=== PATIENT | male | born 1955 | race African-American/Black ===

== ENCOUNTER 2024-09-11 00:53 | Emergency (ER) | payer MEDICARE ==
[~2024-09-11] VITALS: Ht 185.4 cm; Wt 91.0 kg
[2024-09-11 01:20] VITALS: TEMP 98.2; O2SAT 98
[2024-09-11] MEDS: KETOROLAC 15MG/ML VIAL IV ONE (01:30)
[2024-09-11] MEDS: ONDANSETRON HCL 4MG/2ML INJ IV ONE (01:30)
[2024-09-11 03:09] LABS: INR 1.1
[2024-09-11 03:11] LABS: CHLORIDE 108 mEq/L (98-107); POTASSIUM 4.5 mEq/L (3.5-5.1); SODIUM 144 mEq/L (136-145)
[2024-09-11 03:12] LABS: CALCIUM 9.7 mg/dL (8.7-10.4); CARBON DIOXIDE 27 mEq/L (21-32)
[2024-09-11 03:17] LABS: CREATININE 1.3 mg/dL (0.6-1.3); GLUCOSE 99 mg/dL (70-105); UREA NITROGEN BLOOD 20 mg/dL (9-23)
[2024-09-11 03:19] LABS: ALANINE AMINOTRANSFERASE 13 IU/L (10-49); ASPARTATE AMINOTRANSFERASE 22 IU/L (<34); BILIRUBIN DIRECT 0.1 mg/dL (<=3.0); BILIRUBIN TOTAL 0.5 mg/dL (0.1-1.0)
[2024-09-11 03:21] LABS: BASOPHILS % 0.4 % (0.0-2.0); EOSINOPHILS % 5.8 % (0.0-5.0); HEMATOCRIT. 40.8 % (42.0-52.0); HEMOGLOBIN. 13.6 g/dL (14.0-18.0); LYMPHOCYTES % 17.8 % (20.0-50.0); MEAN CORPUSCULAR HEMOGLOBIN 33.2 pg (28.0-32.0); MEAN CORPUSCULAR HGB CONC 33.2 g/dL (31.0-37.0); MEAN CORPUSCULAR VOLUME 99.9 fL (80.0-94.0); MEAN PLATELET VOLUME 7.3 fl (7.4-10.4); MONOCYTES % 8.3 % (2.0-8.0); NEUTROPHILS % 67.7 % (40.0-76.0); PLATELET 201 x1000/uL (130-400); RED BLOOD CELL COUNT 4.09 mill/uL (4.7-6.1); WHITE BLOOD COUNT 5.6 x1000/uL (4.5-11.0)
[2024-09-11 03:32] LABS: ETHANOL BLOOD < 10 mg/dL (<10)
[2024-09-11 03:35] VITALS: BP 138/92; PULSE 96; RESP 18
[2024-09-11] MEDS: ONDANSETRON HCL 4MG/2ML INJ IV NR (03:35)
[2024-09-11] MEDS: KETOROLAC 15MG/ML VIAL IV NR (03:35)
[2024-09-11] MEDS: SODIUM CHLORIDE 0.9% 1,000 ML IV ONE (03:36)
[2024-09-11] MEDS: MORPHINE SULFATE 4 MG/ML INJ (FOR IV/IM USE) IV ONE (05:37)
[2024-09-11] MEDS ORDERED: IBUP-2029 MT (05:42)
[2024-09-11] MEDS ORDERED: IOHEXOL-300 100 ML BOTTLE ONE (06:04)
== END 2024-09-11 06:05 | disposition home or self-care (01) ==
LOC: ER 00:53
DX: K40.90 Unilateral inguinal hernia, without obstruction or gangrene, not specified as recurrent (principal)
CPT/HCPCS: 80076; 80048; 80320; 83690; 85025; 85610; 36415; 74177; 96361; 96374; 96375; 99285; Q9967; J1885; J2405; J2270; J7030; G0480